=== PATIENT | female | born 1965 | race Caucasian/White ===

== ENCOUNTER → 2019-08-18 11:04 | Outpatient (CLI) | payer OTHER, SELFPAY ==
--- NOTE | 2019-08-18 11:08 | DI.US.S_ITS ---
PROCEDURE: US PELVIC COMPLETE INDICATIONS: PELVIC PAIN. FOLLOWUP ON OVARIAN CYST TECHNIQUE: Real-time scanning was performed of the pelvic organs, with image documentation. Additional endovaginal scanning was necessary due to incomplete visualization of the adnexal and endometrial structures by transabdominal scanning. COMPARISON: None. FINDINGS: Transabdominal scanning: Limited scanning through the kidneys shows no hydronephrosis. No pathologic free abdominal or pelvic fluid. Endovaginal scanning: Uterus: Prior hysterectomy reportedly approximately 10 years ago. Ovaries: Neither ovary could be located. IMPRESSION: Prior hysterectomy, nonvisualization of the ovaries bilaterally. Depending on the clinical status followup by pelvic CT or MR scanning may be warranted. Dictated by: Drew Waite M.D. on 08/18/2019 at 12:43 Approved by: Drew Waite M.D. on 08/18/2019 at 12:44
== END ==
PROVIDERS: PCP Obstetrics & Gynecology; Referring Provider Obstetrics & Gynecology; Visit Provider Obstetrics & Gynecology
DX: R10.2 Pelvic and perineal pain (principal); N83.209 Unspecified ovarian cyst, unspecified side; Z90.710 Acquired absence of both cervix and uterus
CPT/HCPCS: 76830; 76856

== ENCOUNTER → 2019-08-24 17:55 | Outpatient (CLI) | payer OTHER, SELFPAY ==
[2019-08-24 20:46] LABS: Estradiol, Total 56.2 pg/mL
== END ==
PROVIDERS: PCP Nurse Practitioner Family; Referring Provider Obstetrics & Gynecology; Visit Provider Obstetrics & Gynecology
DX: N95.1 Menopausal and female climacteric states (principal)
CPT/HCPCS: 36415; 82670; 83001